=== PATIENT | male | born 1965 | race Caucasian/White ===

== ENCOUNTER → 2017-05-24 | Outpatient (CLI) | payer OTHER ==
[~2017-05-24] MED LIST: [UNRECOGNIZED DRUG - OTHER] PO
[2017-05-24 09:37] LABS: BASO % 0.9 %; BASO ABS # 0.04 K/uL (0-0.2); COMPLETE YES; EOS % 4.4 %; HEMATOCRIT 45.6 % (42-52); LYMPH ABS # 1.36 K/uL (1.2-3.4); MEAN CELL VOLUME 93.8 fL (80-100); MEAN CORPUSCULAR HEMOGLOBIN 30.9 pg (25-34); MEAN CORPUSCULAR HGB CONC 32.9 g/dl (32-36); MEAN PLATELET VOLUME 11.3 fL (7.4-10.4); MONO % 11.5 %; NEUT % 53.2 %; PLATELET COUNT 230 K/uL (130-400); RED BLOOD COUNT 4.86 M/uL (4.7-6.1); WHITE BLOOD COUNT 4.54 K/uL (4.8-10.8)
[2017-05-24 10:17] LABS: ALT/SGPT 32 U/L (12-78); BLOOD UREA NITROGEN 22 mg/dl (7-18); BUN/CREATININE RATIO 18.3 (10-20); CALCIUM 8.9 mg/dl (8.5-10.1); CARBON DIOXIDE 27 mmol/L (21-32); CHLORIDE 105 mmol/L (98-107); CHOLESTEROL 210 mg/dl (0-200); GLUCOSE 88 mg/dl (70-99); POTASSIUM 4.1 mmol/L (3.5-5.1); SODIUM 139 mmol/L (136-145); TRIGLYCERIDES 45 mg/dl (0-150); VERY LOW DENSITY LIPOPROT CALC 9 mg/dl
[2017-05-24 10:27] LABS: ALKALINE PHOSPHATASE 72 U/L (45-117); AST/SGOT 31 U/L (15-37); CHOLESTEROL/HDL RATIO 2.5; HDL CHOLESTEROL 83 mg/dl; LDL CHOLESTEROL CALCULATED 118 mg/dl
== END ==
LOC: C.LAB1850 07:15
PROVIDERS: ATTEND Internal Medicine Pulmonary Disease
DX: Z00.00 Encounter for general adult medical examination without abnormal findings (principal)

== ENCOUNTER 2017-06-15 21:49 | Emergency (ER) | payer OTHER ==
[~2017-06-15] VITALS: Ht 175.3 cm; Wt 76.5 kg
[2017-06-15 21:52] VITALS: TEMP 36.9; Ht 175.3 cm; Wt 76.5 kg
[2017-06-15 22:00] VITALS: O2SAT 96
[2017-06-15 22:11] LABS: BASO % 0.3 %; BASO ABS # 0.03 K/uL (0-0.2); COMPLETE YES; EOS % 2.3 %; HEMATOCRIT 43.3 % (42-52); IG% 0.1 %; LYMPH % 22.2 %; LYMPH ABS # 2.02 K/uL (1.2-3.4); MEAN CELL VOLUME 91.7 fL (80-100); MEAN CORPUSCULAR HEMOGLOBIN 31.8 pg (25-34); MEAN CORPUSCULAR HGB CONC 34.6 g/dl (32-36); MEAN PLATELET VOLUME 10.1 fL (7.4-10.4); MONO % 8.7 %; NEUT % 66.4 %; PLATELET COUNT 197 K/uL (130-400); RED BLOOD COUNT 4.72 M/uL (4.7-6.1)
[2017-06-15 22:31] LABS: BUN/CREATININE RATIO 18.5 (10-20); CREATININE 1.12 mg/dl (0.60-1.40); POTASSIUM 4.1 mmol/L (3.5-5.1)
--- NOTE | 2017-06-15 22:44 | DIAGNOSTIC IMAGING REPORT ---
CHEST ONE VIEW PORTABLE CLINICAL HISTORY: Atypical chest pain COMPARISON STUDY: No previous studies for comparison. FINDINGS: The heart is the upper limits of normal in size. There is no overt failure. There is no lobar consolidation. There is left basal interstitial thickening. There are nonspecific increased markings in the right infrahilar region. There are no pleural effusions.[ IMPRESSION: 1. Mild soft tissue prominence of the right infrahilar region 2. Mildly interstitial thickening at the left lung base 3. Short-term radiographic follow-up is recommended. Electronically signed by: Thomas Tillman M.D. 06/15/2017 10:43 PM Dictated Date/Time: 06/15/2017 10:41 PM
[2017-06-15] MEDS ORDERED: OPTIRAY 320 IV PRN (23:00)
[2017-06-15 23:01] LABS: LYME DISEASE AB IGG NEG (NEG); LYME DISEASE AB IGM NEG (NEG)
[2017-06-16] MEDS ORDERED: RIVAROXABAN TAB 15 MG TAB PO STA (00:37)
[2017-06-16] MEDS ORDERED: TRAMADOL HCL 50 MG TAB PO STA (00:55)
[2017-06-16] MEDS ORDERED: OXYCODONE HCL IR 5 MG TAB (IMMEDIATE RELEASE) PO STA (02:07)
[2017-06-16 02:25] LABS: INR 0.9 (0.9-1.1); PARTIAL THROMBOPLASTIN RATIO 1.1; PROTHROMBIN TIME (PATIENT) 10.1 SECONDS (9.0-12.0)
--- NOTE | 2017-06-16 03:08 | EMERGENCY ROOM VISIT NOTE ---
History First contact with patient: 21:58 Chief Complaint: CARDIAC ASSESSMENT Stated Complaint: LEFT SIDE RIB, UPPER CHEST INTO SHOULDER PAIN History of Present Illness The patient is a 51 year old male who presents to the Emergency Room with complaints of chest pain with inspiration for the past few days that is steadily getting worse and does radiate to his left shoulder. Patient travels a lot. He occasionally smokes cigars a few times per week. He has extensive history of heart disease in the family. He himself states he has no active medical problems. He adamantly denies high blood pressure, cholesterol, diabetes. Patient states he runs daily. Patient states for the past few days he's been having problems running because he's having problems with breathing and chest pain. Patient denies leg pain or swelling, abdominal pain, diaphoresis, nausea, vomiting, diarrhea. Patient states the pain is worse with inspiration. He does not have chronic chest pain, he only has chest pain when he takes a deep breath. No stress test or echo in the past. No personal history of blood clots or family history of blood clots. Review of Systems See HPI for pertinent positives & negatives. A total of 10 systems reviewed and were otherwise negative. Past Medical/Surgical History None Social History Smoking Status: Light Tobacco Smoker Drug Use: none Marital Status: Housing Status: lives with family Occupation Status: employed Current/Historical Medications No Active Prescriptions or Reported Meds Physical Exam Vital Signs Date Time Temp Pulse Resp B/P (MAP) Pulse Ox O2 Delivery O2 Flow Rate FiO2 06/16/17 02:15 70 06/16/17 02:08 67 18 118/82 95 Room Air 06/15/17 23:35 68 18 117/78 96 Room Air 06/15/17 22:22 76 06/15/17 22:13 96 Room Air 06/15/17 22:00 96 Room Air 06/15/17 21:52 36.9 74 18 161/91 96 Room Air Physical Exam VITALS: Vitals are noted on the nurse's note and reviewed by myself. Vital signs stable. GENERAL: Pleasant male, in no acute distress, nondiaphoretic, well-developed well-nourished. SKIN: The skin was without rashes, erythema, edema, or bruising. There is no tenting of the skin. Capillary reflex less than 2 seconds. HEAD: Normocephalic atraumatic. EARS: External auditory canals clear, tympanic membranes pearly roland without erythema or effusion bilaterally. EYES: Pupils equal round and reactive to light and accommodation. Conjunctivae without injection, sclerae without icterus. Extraocular movements intact. NOSE: Patent, turbinates without inflammation or discharge. MOUTH: Mucous membranes moist. pharynx without erythema or exudate. Uvula midline. Airway patent. Tongue does not deviate. NECK: Supple without nuchal rigidity. No lymphadenopathy. No thyromegaly. Cervical spine is nontender. No JVD. HEART: Regular rate and rhythm without murmurs gallops or rubs. Chest nontender to palpation LUNGS: Clear to auscultation bilaterally without wheezes, rales or rhonchi. No dullness to percussion. No retractions or accessory muscle use. ABDOMEN: Positive bowel sounds x 4. Normal tympanic percussion. Soft, nontender, without masses or organomegaly. Vivar sign negative. No guarding or rebound tenderness. MUSCULOSKELETAL: No muscle atrophy, erythema, or edema noted. NEURO: Patient was alert and oriented to person place and time. Normal sensation to light and sharp touch. No focal neurological deficits. Medical Decision & Procedures Laboratory Results 06/15/17 20:02 Red Blood Count 4.72, Mean Corpuscular Volume 91.7, Mean Corpuscular Hemoglobin 31.8, Mean Corpuscular Hemoglobin Concent 34.6, Mean Platelet Volume 10.1, Neutrophils (%) (Auto) 66.4, Lymphocytes (%) (Auto) 22.2, Monocytes (%) (Auto) 8.7, Eosinophils (%) (Auto) 2.3, Basophils (%) (Auto) 0.3, Neutrophils # (Auto) 6.04, Lymphocytes # (Auto) 2.02, Monocytes # (Auto) 0.79, Eosinophils # (Auto) 0.21, Basophils # (Auto) 0.03 06/15/17 20:02 Test 06/15/17 20:02 06/16/17 00:39 06/16/17 02:05 White Blood Count 9.10 K/uL (4.8-10.8) Red Blood Count 4.72 M/uL (4.7-6.1) Hemoglobin 15.0 g/dL (14.0-18.0) Hematocrit 43.3 % (42-52) Mean Corpuscular Volume 91.7 fL (80-100) Mean Corpuscular Hemoglobin 31.8 pg (25-34) Mean Corpuscular Hemoglobin Concent 34.6 g/dl (32-36) Platelet Count 197 K/uL (130-400) Mean Platelet Volume 10.1 fL (7.4-10.4) Neutrophils (%) (Auto) 66.4 % Lymphocytes (%) (Auto) 22.2 % Monocytes (%) (Auto) 8.7 % Eosinophils (%) (Auto) 2.3 % Basophils (%) (Auto) 0.3 % Neutrophils # (Auto) 6.04 K/uL (1.4-6.5) Lymphocytes # (Auto) 2.02 K/uL (1.2-3.4) Monocytes # (Auto) 0.79 K/uL (0.11-0.59) Eosinophils # (Auto) 0.21 K/uL (0-0.5) Basophils # (Auto) 0.03 K/uL (0-0.2) RDW Standard Deviation 40.4 fL (36.4-46.3) RDW Coefficient of Variation 11.8 % (11.5-14.5) Immature Granulocyte % (Auto) 0.1 % Immature Granulocyte # (Auto) 0.01 K/uL (0.00-0.02) Anion Gap 6.0 mmol/L (3-11) Est Creatinine Clear Calc Drug Dose 76.3 ml/min Estimated GFR () 86.5 Estimated GFR (Non- 74.6 BUN/Creatinine Ratio 18.5 (10-20) Calcium Level 9.0 mg/dl (8.5-10.1) Total Bilirubin 0.5 mg/dl (0.2-1) Direct Bilirubin 0.1 mg/dl (0-0.2) Aspartate Amino Transf (AST/SGOT) 29 U/L (15-37) Alanine Aminotransferase (ALT/SGPT) 20 U/L (12-78) Alkaline Phosphatase 82 U/L (45-117) Total Protein 7.9 gm/dl (6.4-8.2) Albumin 3.7 gm/dl (3.4-5.0) Lipase 235 U/L (73-393) Lyme Disease IgG Antibody NEG (NEG) Lyme Disease IgM Antibody NEG (NEG) Prothrombin Time 10.1 SECONDS (9.0-12.0) Prothromb Time International Ratio 0.9 (0.9-1.1) Activated Partial Thromboplast Time 27.4 SECONDS (21.0-31.0) Partial Thromboplastin Ratio 1.1 Troponin I < 0.015 ng/ml (0-0.045) Medications Administered Medications (Trade) Dose Ordered Sig/Angelique Route Start Time Stop Time Status Last Admin Dose Admin Rivaroxaban (Xarelto Tab) 15 mg DAILY STAT PO 06/16/17 00:37 06/16/17 00:38 DC 06/16/17 00:59 15 MG Tramadol HCl (Ultram Tab) 50 mg ONE STAT PO 06/16/17 00:55 06/16/17 00:56 DC 06/16/17 00:59 50 MG Oxycodone HCl (Roxicodone Immediate Rel Tab) 5 mg NOW STAT PO 06/16/17 02:07 06/16/17 02:08 DC 06/16/17 02:14 5 MG ED Course Prior records/ancillary studies reviewed. Triage Nursing notes reviewed. Additional history obtained from family The patient's history was concerning for chest pain with inspiration. Differential diagnosis: Etiologies such as cardiac ischemia, aortic dissection, pulmonary embolism, pneumonia, pneumothorax, musculoskeletal, infections, pericarditis, myocarditis , esophageal rupture, gastrointestinal, as well as others were entertained. Physical examination: As above. ER treatment provided: Ultram, Xarelto On reassessment the patient felt better. Diagnostic interpretation by me: The electrocardiogram was normal sinus, Q-wave in lead 3, no acute ST-T wave changes, occasional PVC. Impression normal sinus rhythm with occasional PVCs interpreted by myself The labs revealed ddimer greater than 5000, negative troponin. Patient had positive PE on CTA and hypercoagulable workup was ordered Imaging studies: Chest x-ray as above CTA CHEST: Limited study. Study is positive for small bilateral pulmonary emboli. Atelectasis/pneumonitis the lung bases. Probable superimposed infarct in the left lung base. Trace left pleural fluid. Cardiomegaly. Radiologist: Duncan Freedman M.D. Study ready at 23:18 and initial results transmitted at 00:24 [employer] Ultrasound of the arms and legs negative for DVT Consultation: A consultation was placed with the hospitalist, Dr Dunn. The case was discussed and diagnostics were reviewed. He recommends discharge home.. Pulmonary embolism severity index score: 10 (for his male gender) which is low risk and is a suitable candidate for outpatient treatment. Patient has no history of recent bleeding. No recent Surgery. Exam and history seem consistent with PEs that are small with probable superimposed infarct to the left lung base. Patient had stable vital signs. He was not hypoxic. Negative troponin. He did not want to be admitted to the hospital. He was felt to be a good candidate for outpatient treatment. He is advised take Xarelto twice a day for 21 days and then once a day. He was advised to follow-up family care in a few days or here in the ER sooner for chest pain, difficulty breathing, fevers, worsening signs or symptoms or as needed. I order the hypercoagulable workup for this patient. He had a negative troponin. He was well-appearing and was requesting to leave. By the evaluation outlined above emergent etiologies such as cardiac ischemia, aortic dissection, pneumonia, pneumothorax, infections, pericarditis, myocarditis, gastrointestinal, as well as others were deemed relatively unlikely. The pt informed about the findings as listed above. All questions were answered and pleased with the treatment. Return instructions were outlined and the patient was discharged in stable condition. Outpatient prescription management: Xarelto 15mg BID, OxyIR Referral: The patient was referred back to primary care physician for follow-up in 2 to 3 days for a recheck of the current condition. Case reviewed with my attending Medical Decision as above Medication Reconcilliation Current Medication List: was personally reviewed by me Blood Pressure Screening Patient's blood pressure: Normal blood pressure Impression Primary Impression: Pulmonary embolism Departure Information Dispostion Home / Self-Care Condition GOOD Prescriptions No Active Prescriptions or Reported Meds Referrals Yoandy Mcclure M.D. (PCP) Patient Instructions My [facility] Additional Instructions DO NOT drive, drink alcohol, operate machinery, or perform dangerous activities today. You were given medications in the ER that can affect your ability to safely function or operate a vehicle. Incentive spirometry 4 times an hour while you're awake for the next 2 weeks. Xarelto 15 m tablet twice a for 21 days.. Any medication can cause an allergic reaction, stop the pills immediately and return to the ER for rash, hives, breathing difficulties, or swelling. He will then need to change your Xarelto to 20 mg daily. This needs to be done by your family care doctor. Oxycodone (OxyIR) 5mg: Take 1-2 pills every four hours for breakthrough pain. Avoid alcohol, operating machinery or dangerous equipment, working on ladders or roofs, DRIVING, or situations where being under the influence may be dangerous. It is recommended to use an glgf-isq-bignoms stool softener such as Colace, 100mg twice daily while taking this medication to avoid constipation. Acetaminophen(Tylenol) may be used for fever or pain. Use 1000mg every six hours as needed. Avoid using more than 3000mg in a 24 hour period. Rest and drink plenty of fluids as tolerated. Continue current medications. It may take up to 6 weeks for your symptoms to resolve. If you hit her head, you need to come to the ER immediately. Avoid strenuous activities and anything that worsens your pain. Resume normal activities once your symptoms resolve. Return to the ER immediately for worsening or persistent chest pain, abdominal pain, vomiting, fevers, chest pains, difficulty breathing, worsening of your condition, or as needed. Follow up with your primary physician in 2-3 days for a recheck of your current condition. Problem Qualifiers Primary Impression: Pulmonary embolism Pulmonary embolism type: other Chronicity: acute Acute cor pulmonale presence: without acute cor pulmonale Qualified Codes: I26.99 - Other pulmonary embolism without acute cor pulmonale
[2017-06-16] MEDS ORDERED: OXYC1TAB3 PO (03:11)
[2017-06-16] MEDS ORDERED: XRL15 PO (03:11)
[2017-06-16] MEDS ORDERED: OXYCODONE IR HOME PACK PO ONE (03:15)
[2017-06-16] MEDS ORDERED: RIVAROXABAN TAB 15 MG TAB PO ONE (03:15)
[2017-06-16 03:23] VITALS: BP 124/68; PULSE 72; O2SAT 98
--- NOTE | 2017-06-16 07:08 | DIAGNOSTIC IMAGING REPORT ---
ULTRASOUND BILATERAL LOWER EXTREMITY VENOUS CLINICAL HISTORY: Pulmonary emboli. COMPARISON STUDY: No priors. TECHNIQUE: Real-time, grayscale, and color Doppler sonography of the deep veins of the right and left lower extremity was performed from the inguinal crease to the calf. Compression and augmentation were utilized. FINDINGS: There is no sonographic evidence of deep venous thrombosis identified in the right or left lower extremity. The common femoral, superficial femoral, and popliteal veins are patent and normally compressible bilaterally. The greater saphenous vein and the profunda femoris vein at the junction with the common femoral vein are clear in both legs. The visualized calf veins are patent bilaterally. IMPRESSION: There is no sonographic evidence of deep venous thrombosis identified in the right or left lower extremity. Electronically signed by: Jass Corely M.D. 06/16/2017 7:07 AM Dictated Date/Time: 06/16/2017 7:06 AM
--- NOTE | 2017-06-16 07:08 | DIAGNOSTIC IMAGING REPORT ---
BILATERAL UPPER EXTREMITY VENOUS DOPPLER HISTORY: Left shoulder pain. PEs, ? DVT COMPARISON STUDY: None. FINDINGS: There is normal compressibility, flow, and augmentation within the bilateral upper extremity deep venous systems. IMPRESSION: No DVT within the right or left upper extremity. Electronically signed by: Dipesh Peterson M.D. 06/16/2017 7:07 AM Dictated Date/Time: 06/16/2017 7:06 AM
--- NOTE | 2017-06-16 07:29 | DIAGNOSTIC IMAGING REPORT ---
(CHEST FOR PE) ANGIO WITH CT DOSE: 253.83 mGy.cm HISTORY: 51 years-old Male presents with acute chest pain, shortness of breath and elevated d-dimer TECHNIQUE: Multiple CTA images of the chest were obtained after the intravenous administration of 81 ml Optiray 320. Coronal and sagittal MIPS were obtained from the axial data set and were submitted for review. A dose lowering technique was utilized adhering to the principles of ALARA. COMPARISON: Chest radiograph of same day, duplex venous ultrasound 06/16/2017. FINDINGS: CTA: Heart is normal in size without pericardial effusion. The thoracic aorta is normal in both course and caliber and demonstrates no evidence of dissection or aneurysm, however is somewhat suboptimally opacified. The left vertebral artery emanates strictly from the aortic arch. Bilateral pulmonary emboli are present within the distal segmental and subsegmental branches of the lower lobes and right middle lobe with subsegmental emboli also present within the upper lobes. No evidence of right heart strain. No pulmonary arterial dilation. Evaluation of the pulmonary arterial tree is somewhat limited secondary to contrast bolus timing. CT CHEST: Trace left pleural effusion. No pneumothorax. Minimal dependent bibasilar atelectasis. Focal wedge-shaped opacity abutting the pleural surface of the lateral basal segment left lower lobe, 2.3 cm may reflect atelectasis or pulmonary infarction. Central airways are patent. No lobar airspace consolidations. No acute mildly of the imaged upper abdomen. Soft tissues are unremarkable. Bones appear intact. Multilevel endplate spurring of the spine. IMPRESSION: 1. Multiple bilateral pulmonary emboli within distal segmental and subsegmental branches as above. No central pulmonary embolus or evidence of right heart strain. 2. Wedge-shaped pleural-based consolidative opacity of the lateral basal segment left lower lobe may reflect atelectasis or small pulmonary infarction, 2.3 cm. 3. Trace left pleural effusion. The above report was generated using voice recognition software. It may contain grammatical, syntax or spelling errors. Electronically signed by: Dean Penny M.D. 06/16/2017 7:28 AM Dictated Date/Time: 06/16/2017 7:20 AM
[2017-06-21 10:31] LABS: ANTITHROMBINIII ACTIVITY** 118 % activity (80-120); B2 GLYCOPROTEIN IGA <9 SAU (<=20); B2 GLYCOPROTEIN IGG <9 SGU (<=20); B2 GLYCOPROTEIN IGM <9 SMU (<=20); LUPUS ANTICOAGULANT** TC36573X Negative (Negative); PROTEIN C ACTIVITY** TC 1777X 87 % (70-180); PROTEIN S ACT(FUNCT)**1779X 87 % (70-150)
== END 2017-06-16 03:23 | disposition home or self-care (01) ==
LOC: C.EDB 21:51 → C.EDA 06-16 03:23
DX: I26.99 Other pulmonary embolism without acute cor pulmonale (principal); F17.200 Nicotine dependence, unspecified, uncomplicated

== ENCOUNTER → 2017-09-15 | Outpatient (CLI) | payer OTHER ==
[~2017-09-15] MED LIST changes: +OXYC1TAB3 PO; +XRL15 PO; -[UNRECOGNIZED DRUG - OTHER] PO
[2017-09-18 10:50] LABS: FECAL OCCULT BLOOD #1 NEGATIVE (NEGATIVE); FECAL OCCULT BLOOD #2 NEGATIVE (NEGATIVE); FECAL OCCULT BLOOD #3 NEGATIVE (NEGATIVE)
== END | disposition home or self-care (01) ==
LOC: C.LABSPEC 10:23
PROVIDERS: ATTEND Physician Assistant Medical
DX: R19.5 Other fecal abnormalities (principal)